=== PATIENT | female | born 1990 | race Caucasian/White ===

== ENCOUNTER 2017-06-30 12:06 | Emergency (ER) | payer OTHER ==
[~2017-06-30] VITALS: Ht 165.1 cm; Wt 63.5 kg
[~2017-06-30 12:06] MED LIST: LEVAQUIN750 MG PO
--- NOTE | 2017-06-30 12:25 | Urgent Treatment Center Report ---
History of Present Issue Date/Time Seen by Provider 06/30/17 1225 Visit Reason Pt arrived:Walked Presenting Problem:PT STATES HEADACHE, HEAD AND CHEST CONGESTION, RUNNY NOSE FOR ONE WEEK Location if Accident: Onset of symptoms date/time:/ or onset unknown for:MEDICAL HX UNKNOWN Have you (or family members/close friends) recently traveled outside the [place]? N If Yes, where/when: Have you had exposure to infectious disease within the past month? TB? Other? Specify: c/o sinus pressure, nasal congestion, PND that started over one week ago and has since moved into chest causing chest congestion, productive cough, now green sputum, SOA w/ exertion and wheezing. Feels each day head symptoms are improving but chest symptoms are getting worse. [place] feverish initially but started cold day and night medication as well as tylenol and ibuprofen. "I think that has been taking care of the fever and aches". Hx of asthma. Using ventolin as needed. Helps w/ chest tightness feeling. 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 Nonsmoker. Source patient Exam Limitations no limitations ALLERGIES Coded Allergies: cefaclor (From [employer]) (06/30/17) History Medical History General CAD? No Angina: No [place]: No Hypertension? No Hyperlipidemia? No CHF? No DVT? No PE? No COPD? No Asthma? No Anemia? No GERD? No Gastric ulcers? No GI Bleed? No Hernia? No Thyroid Problems? No Hypothyroidism? No CVA? No Seizures? No Diabetes? No Renal Insuffiency? No UTI? No Stones? No BPH? No GB Disease: No Nephritic Syndrome? No Asplenia? No Hepatitis? No Sickle Cell Disease? No Arthritis? No Migraines? No Cataracts? No Glaucoma? No MRSA? No HIV? No TB? No Anxiety? No Depression? No Cancer? No Immunization HX DT/Tetanus 1-4 Years Ago Surgical Hx Previous Surgery?N [employer] Hx LMP Now Social History Smoking Hx Smoker: Never Smoker Tobacco: No Alcohol Alcohol: No Review of Systems All Other Systems Reviewed and Negative Constitutional see HPI Eyes denies drainage ENT see HPI. denies: ear pain. Respiratory see HPI, other (worse at night,sleeps up helps) Cardiovascular denies chest pain Gastrointestinal denies no symptoms reported Musculoskeletal see HPI Skin denies rash Psychiatric/Neurological see HPI, denies other (dizziness) Physical Exam Vital Signs Vital Signs Date Time Temp Pulse Resp B/P Pulse O2 O2 Flow FiO2 Ox Delivery Rate 06/30 1339 97.3 85 18 119/78 99 06/30 1212 97.3 85 18 119/78 99 General Appearance normal appearance, no apparent distress Eye Exam - bilateral eye normal exam Ear, Nose, Throat normal ENT inspection (x/ nasal congsestion and PND) Neck non-tender, supple Respiratory Status Yes: trachea midline, chest symmetrical, non tender chest, non productive cough. No: respiratory distress, use of accessory muscles, pain on inspiration, pain on expiration, productive cough. Lung Sounds anterior: lungs clear. posterior: lungs clear. bilateral: lungs clear. Cardiovascular regular rate/rhythm, no peripheral edema, no murmur Neurologic alert, oriented x 3 Mental status normal mood/affect Skin normal color, warm/dry Lymphatic no adenopathy Medical Decision Making LABS/Meds/Orders Pt receiving controlled substance in ED? No Results/Orders Orders Procedure Date/time Status CHEST(2 VIEWS-NOT PORTABLE) 06/30 1218 Active XRAY/CT/US XRAY/CT/US XRAY chest XR interpretation by reviewed by me, discussed w/radiologist (read report) Xray Results no acute finding, mild hyperexpansion [facility] Progress Notes Date 06/30/17 Time 1253 Comment ED with multiple traumas. unable to get to xrays. Radiologist called. Spoke to Oscar. Reports he will read when he is available. Departure Departure Time of Disposition 1335 Disposition DC Home or Self Care(routine) Clinical Impression Primary Impression: Acute bronchitis Qualifiers: Bronchitis organism: unspecified organism Qualified Code: J20.9 - Acute bronchitis, unspecified Condition STABLE Referrals NO REFERRAL Follow up with your primary care IMMEDIATELY for new or worsening symptoms OR no noticeable improvement over the next 48-72 hours. 911 for difficulty breathing. Patient Instructions DI for Acute Bronchitis Additional Instructions * start antibiotic today. Be sure to complete entire prescription even if feeling better. * Monitor Temp. Tylenol every 4 hours as needed and/or ibuprofen every 6 hours as needed (as long as your primary care doctor has told you that it is ok to take both) for fever/aches/pain. ER if fever no less than 101 despite tylenol and ibuprofen * humidifier/vaporizer/hot steamy shower * Continue Inhaler every 4-6 hours as needed like we discussed. If unsure how to use it, ask pharmacist to demonstrate how. Should help open airways and improve cough, wheezing, shortness of breath. * Mucinex during the day for your cough and cough suppressant only at night. Be sure to drink lots of water. Insurance may not cover a prescription of mucinex. Might be cheaper to get 400mg tablets and take 2 tablets morning, midday and evening all with lots of water. * Promethazine DM cough syrup will cause drowsiness. Use it only at night. No driving, operating machinery or caring for small children after taking it. * Start steroid today. Helps with inflammation therefore, cough and wheezing. Follow directions on package. Rvwd side effects. Pt reports they have taken them before. Discharge Counseling Counseled pt/family regarding diagnosis, test results, medications/RX, home care, follow up needs Prescriptions Current Visit Scripts Azithromycin (Zithromycin (Z-SATHYA) 250MG Tab) 250 MG PO DAILY #6 TAB TAKE TWO (2) TABLETS ON DAY 1, THEN ONE (1) TABLET DAY #2 THRU #5 PROMETHAZINE/DEXTROMETHORPHAN (Promethazine-Dm Syrup) 10 ML PO QHSP PRN cough #120 ML Fluticasone Propionate (Flonase 50 Mcg Nasal [place]) 2 SPRAY NA DAILY #1 BOT Prednisone (Prednisone 20MG) 20 MG PO BID #10 TAB at 1341
--- NOTE | 2017-06-30 13:28 | RADIOLOGY REPORT PS360 ---
CHEST(2 VIEWS-NOT PORTABLE) HISTORY: COUGH ORDERING PHYSICIAN: HAYLEE CARRENO APRN PATIENT AGE: 26 years COMPARISON: None available FINDINGS: There is mild pectus excavatum deformity with obliteration of the right heart border is seen with in the. No lobar consolidation or collapse is evident. No acute bony anomalies. IMPRESSION: Pectus excavatum, no acute finding
[2017-06-30] MEDS ORDERED: ZITHROMAX Z PA250 MG PO (13:37)
[2017-06-30] MEDS ORDERED: FLONASE 50 MCG16 GM (13:38)
[2017-06-30] MEDS ORDERED: PROMETHAZINE D118 ML PO (13:38)
[2017-06-30] MEDS ORDERED: PREDNISONE 20MG20 MG PO (13:38)
[2017-06-30 13:39] VITALS: BP 119/78
== END 2017-06-30 13:42 | disposition home or self-care (01) ==
LOC: UTC 12:06
DX: J20.9 Acute bronchitis, unspecified (principal)